=== PATIENT | female | born 1950 | race Two or more races ===

== ENCOUNTER 2019-03-29 17:29 | Emergency (ER) | payer OTHER ==
[~2019-03-29] VITALS: Ht 154.9 cm; Wt 70.3 kg
[2019-03-29 17:39] VITALS: BP 137/74
== END 2019-03-29 20:59 | disposition home or self-care (01) ==
LOC: ER 17:29
DX: J44.1 Chronic obstructive pulmonary disease with (acute) exacerbation (principal); J20.9 Acute bronchitis, unspecified; I10 Essential (primary) hypertension; E11.9 Type 2 diabetes mellitus without complications
CPT/HCPCS: 71046; 93005

== ENCOUNTER 2020-08-01 14:38 | Emergency (ER) | payer BC, MEDICAID ==
[2020-08-01] MEDS ORDERED: ACETAMINOPHEN 325 MG TAB PO ONE (15:30)
[2020-08-01 16:45] VITALS: BP 142/71
== END 2020-08-01 17:46 | disposition home or self-care (01) ==
LOC: ER 14:38
DX: J02.9 Acute pharyngitis, unspecified (principal); Z20.822 Contact with and (suspected) exposure to COVID-19
CPT/HCPCS: 36415; 71045; 87426; 87804; 99284; C9803; U0003

== ENCOUNTER 2020-09-03 14:50 | Emergency (ER) | payer MEDICARE, MEDICAID ==
[~2020-09-03] VITALS: Ht 157.5 cm; Wt 66.7 kg
[2020-09-03 15:33] VITALS: BP 123/66
== END 2020-09-03 16:38 | disposition home or self-care (01) ==
LOC: ER 14:50
DX: S92.514A Nondisplaced fracture of proximal phalanx of right lesser toe(s), initial encounter for closed fracture (principal); E11.9 Type 2 diabetes mellitus without complications; I10 Essential (primary) hypertension; W22.8XXA Striking against or struck by other objects, initial encounter; Y93.89 Activity, other specified; Y92.89 Other specified places as the place of occurrence of the external cause; Y99.8 Other external cause status
CPT/HCPCS: 73630

== ENCOUNTER 2021-04-05 10:39 | Emergency (ER) | payer OTHER, MEDICAID ==
[~2021-04-05] VITALS: Ht 154.9 cm; Wt 68.0 kg
[2021-04-05 10:53] VITALS: BP 150/77
[2021-04-05] MEDS ORDERED: SODIUM CHLORIDE 0.9% 1,000 ML IV ONE (11:30)
[2021-04-05] MEDS ORDERED: KETOROLAC TROMETH 30 MG/ML 1ML VIAL IV ONE (11:30)
[2021-04-05 12:17] LABS: Basophils # (auto) 0 10 ^3/uL (0-0.2); Basophils % (auto) 0.7 % (0.0-2.0); Eosinophils # (auto) 0 10 ^3/uL (0-0.8); Eosinophils % (auto) 0.7 % (0.0-7.0); Hematocrit 39.2 % (36.0-46.0); Lymphocytes # (auto) 1.8 10 ^3/uL (0.4-5.4); Lymphocytes % (auto) 27.5 % (10.0-50.0); Mean Corpuscular Hgb Conc. 33.2 g/dL (32.0-36.0); Mean Corpuscular Volume 90.4 fL (80.0-100.0); Monocytes # (auto) 0.3 10 ^3/uL (0-1.3); Monocytes % (auto) 4.9 % (0.0-12.0); Neutrophils # (auto) 4.3 10 ^3/uL (1.6-8.6); Neutrophils % (auto) 66.2 % (37.0-80.0); Red Blood Cells 4.33 10^6/uL (4.0-5.20); Red Cell Distribution Width 13.3 % (11.8-14.3); White Blood Cell 6.5 10^3/uL (4.4-10.8)
[2021-04-05 12:38] LABS: Potassium 3.9 mmol/L (3.5-5.1)
[2021-04-05 12:46] LABS: Albumin 3.9 g/dL (3.4-5.0); BUN/Creatinine Ratio 17.6; Bilirubin, Total 0.2 mg/dL (0.2-1.0); Magnesium 2.2 mg/dL (1.6-2.6); Total Protein 8.6 g/dL (6.4-8.2)
== END 2021-04-05 17:25 | disposition home or self-care (01) ==
LOC: ER 10:39
DX: M54.59 Other low back pain (principal); M41.26 Other idiopathic scoliosis, lumbar region; E11.65 Type 2 diabetes mellitus with hyperglycemia; R51.9 Headache, unspecified; M54.2 Cervicalgia; M85.80 Other specified disorders of bone density and structure, unspecified site; M62.838 Other muscle spasm; E11.9 Type 2 diabetes mellitus without complications; I10 Essential (primary) hypertension; Z90.49 Acquired absence of other specified parts of digestive tract; W10.9XXA Fall (on) (from) unspecified stairs and steps, initial encounter; Y93.89 Activity, other specified; Y92.89 Other specified places as the place of occurrence of the external cause; Y99.8 Other external cause status
CPT/HCPCS: 36415; 71046; 72040; 72100; 80053; 83735; 85025

== ENCOUNTER 2021-07-13 22:55 | Emergency (ER) | payer OTHER, MEDICAID ==
[~2021-07-13] VITALS: Ht 154.9 cm; Wt 65.3 kg
[2021-07-13] MEDS ORDERED: DEXTROSE (50%) 50ML SYRG IV ONE ×2 (23:15→23:30)
[2021-07-13] MEDS ORDERED: ACCU-CHEK COMFORT CURVE STRIP VI ONE ×2 (23:15→23:30)
[2021-07-13 23:52] LABS: Basophils # (auto) 0.1 10 ^3/uL (0-0.2); Basophils % (auto) 0.7 % (0.0-2.0); Eosinophils # (auto) 0.1 10 ^3/uL (0-0.8); Eosinophils % (auto) 0.7 % (0.0-7.0); Hematocrit 37.4 % (36.0-46.0); Hemoglobin 12.6 g/dL (12.2-16.2); Lymphocytes # (auto) 2.9 10 ^3/uL (0.4-5.4); Lymphocytes % (auto) 31.9 % (10.0-50.0); Mean Corpuscular Hemoglobin 30.7 pg (28.0-32.0); Mean Corpuscular Hgb Conc. 33.8 g/dL (32.0-36.0); Mean Corpuscular Volume 90.8 fL (80.0-100.0); Monocytes # (auto) 0.5 10 ^3/uL (0-1.3); Monocytes % (auto) 5.3 % (0.0-12.0); Neutrophils # (auto) 5.6 10 ^3/uL (1.6-8.6); Neutrophils % (auto) 61.4 % (37.0-80.0); Nucleated Red Blood Cells % 0.2 %; Red Blood Cells 4.11 10^6/uL (4.0-5.20); Red Cell Distribution Width 13.1 % (11.8-14.3)
[2021-07-14 00:11] LABS: Albumin 3.9 g/dL (3.4-5.0); BUN/Creatinine Ratio 16.7; Calcium 9.1 mg/dL (8.5-10.1); Potassium 3.6 mmol/L (3.5-5.1)
[2021-07-14 00:14] LABS: Bilirubin, Total 0.3 mg/dL (0.2-1.0); Total Protein 8.1 g/dL (6.4-8.2)
[2021-07-14 02:00] LABS: Urine Bacteria NONE SEEN /hpf (None Seen); Urine Blood Negative /uL (Negative); Urine Mucus FEW (None Seen); Urine Specific Gravity 1.021 (1.001-1.035); Urine WBC <1 /hpf (0 - 5)
[2021-07-14 02:55] VITALS: BP 148/89
== END 2021-07-14 03:03 | disposition home or self-care (01) ==
LOC: ER 22:55
DX: E11.649 Type 2 diabetes mellitus with hypoglycemia without coma (principal); I10 Essential (primary) hypertension; Z90.49 Acquired absence of other specified parts of digestive tract
CPT/HCPCS: 36415; 80053; 81001; 85025

== ENCOUNTER 2022-09-15 16:34 | Emergency (ER) | payer OTHER ==
[~2022-09-15] VITALS: Ht 154.9 cm; Wt 63.5 kg
[2022-09-15 17:23] LABS: Basophils # (auto) 0 10 ^3/uL (0-0.2); Basophils % (auto) 0.4 % (0.0-2.0); Eosinophils # (auto) 0 10 ^3/uL (0-0.8); Eosinophils % (auto) 0.4 % (0.0-7.0); Hematocrit 38.4 % (36.0-46.0); Hemoglobin 12.7 g/dL (12.2-16.2); Lymphocytes # (auto) 2.1 10 ^3/uL (0.4-5.4); Lymphocytes % (auto) 21.3 % (10.0-50.0); Mean Corpuscular Hemoglobin 29.9 pg (28.0-32.0); Mean Corpuscular Volume 90.5 fL (80.0-100.0); Monocytes # (auto) 0.6 10 ^3/uL (0-1.3); Neutrophils # (auto) 7.3 10 ^3/uL (1.6-8.6); Neutrophils % (auto) 71.9 % (37.0-80.0); Red Blood Cells 4.24 10^6/uL (4.0-5.20); Red Cell Distribution Width 13.6 % (11.8-14.3); White Blood Cell 10.1 10^3/uL (4.4-10.8)
[2022-09-15 17:48] LABS: Calcium 9.3 mg/dL (8.5-10.1); Potassium 3.6 mmol/L (3.5-5.1)
[2022-09-15 17:50] LABS: BUN/Creatinine Ratio 19.3
[2022-09-15 17:53] LABS: Bilirubin, Total 0.3 mg/dL (0.2-1.0); Total Protein 8.6 g/dL (6.4-8.2)
[2022-09-15] MEDS ORDERED: ACETAMINOPHEN 500 MG TAB PO ONE (19:00)
[2022-09-15] MEDS ORDERED: MAALOX PLUS or MAALOX 30 ML PO ONE (19:00)
[2022-09-15 19:35] LABS: Urine WBC None Seen /hpf (0 - 5)
[2022-09-15 19:55] LABS: Urine Bacteria NONE SEEN /hpf (None Seen); Urine Blood Negative /uL (Negative); Urine Specific Gravity 1.006 (1.001-1.035)
[2022-09-15] MEDS ORDERED: CALC100023 PO (21:25)
[2022-09-15] MEDS ORDERED: ONDA-144 PO (21:25)
[2022-09-15 21:59] VITALS: BP 131/69
== END 2022-09-15 22:04 | disposition home or self-care (01) ==
LOC: ER 16:34
DX: A05.9 Bacterial foodborne intoxication, unspecified (principal); E11.9 Type 2 diabetes mellitus without complications; I10 Essential (primary) hypertension; Z90.49 Acquired absence of other specified parts of digestive tract
CPT/HCPCS: 36415; 80053; 81001; 85025; 93005

== ENCOUNTER 2024-01-14 08:26 | Emergency (ER) | payer OTHER ==
[~2024-01-14] VITALS: Ht 152.4 cm; Wt 62.9 kg
[~2024-01-14 08:26] MED LIST: AZIT1POW PO; CALC100023 PO; METH4PAK PO; ONDA-144 PO
[2024-01-14 09:28] VITALS: BP 142/79; PULSE 88; RESP 18; TEMP 98.7; O2SAT 98
[2024-01-14 10:21] LABS: Rapid Strep A Screen-Throat Negative
[2024-01-14] MEDS ORDERED: AUG875T PO (10:31)
[2024-01-14] MEDS ORDERED: ACET500T58 PO (10:31)
[2024-01-14] MEDS ORDERED: BENZ100C97 PO (10:31)
== END 2024-01-14 10:39 | disposition home or self-care (01) ==
LOC: ER 08:26
DX: B34.9 Viral infection, unspecified (principal); E11.9 Type 2 diabetes mellitus without complications; I10 Essential (primary) hypertension; Z90.49 Acquired absence of other specified parts of digestive tract
CPT/HCPCS: 87070; 87880

== ENCOUNTER 2024-03-08 14:50 | Emergency (ER) | payer OTHER ==
[~2024-03-08] VITALS: Ht 152.4 cm; Wt 63.4 kg
[~2024-03-08 14:50] MED LIST changes: +ACET500T58 PO; +AUG875T PO; +BENZ100C97 PO
[2024-03-08 15:17] VITALS: BP 151/76; PULSE 93; RESP 18; TEMP 98; O2SAT 98
[2024-03-08] MEDS ORDERED: LIDO2SOL26 MT (15:47)
[2024-03-08] MEDS ORDERED: PRED20TA2 PO (15:47)
[2024-03-08] MEDS ORDERED: IBUP-1454 PO (15:47)
== END 2024-03-08 16:16 | disposition home or self-care (01) ==
LOC: ER 14:50
DX: J02.9 Acute pharyngitis, unspecified (principal); I10 Essential (primary) hypertension; E11.9 Type 2 diabetes mellitus without complications; Z98.890 Other specified postprocedural states

== ENCOUNTER 2024-08-02 11:52 | Emergency (ER) | payer OTHER ==
[~2024-08-02] VITALS: Ht 154.9 cm; Wt 63.5 kg
[~2024-08-02 11:52] MED LIST changes: +IBUP-1454 PO; +LIDO2SOL26 MT; +PRED20TA2 PO
--- NOTE | 2024-08-02 13:03 | ED.PDOC ---
History of Present Illness HPI Comments This is a 74-year-old female that comes in with left lower quadrant pain for approximately 10 days. She states it is in the left lower quadrant sometimes goes to the back. She does have problems with constipation on and off. She denies any fever or chills no burning no blood in her urine no history of stone s.. Chief Complaint: Pelvic Pain Time Seen by MD: 13:00 Primary Care Provider: BHAVNA Reviewed Notes: Nurses Notes, Medications Allergies: Coded Allergies: NO KNOWN ALLERGIES (Unverified , 03/29/19) Home Meds Active Scripts Ibuprofen (Ibuprofen) 600 Mg Tab, 1 TAB PO TID for 7 Days, #21 TAB 0 Refills Prov:AMINA HERNANDEZ NP 03/08/24 Prednisone (Prednisone) 20 Mg Tab, 40 MG PO DAILY for 5 Days, #10 TAB 0 Refills Prov:AMINA HERNANDEZ NP 03/08/24 Lidocaine HCl (Mouth-Throat) (Lidocaine HCl Viscous) 2 % Christie, 15 ML MT TID for 2 Days, #200 ML 0 Refills Prov:AMINA HERNANDEZ NP 03/08/24 Amoxicillin & Pot Clavulanate (AUGMENTIN TABLET) 875 Mg Tb, 875 MG PO BID for 5 Days, #10 TAB 0 Refills Prov:AMINA HERNANDEZ NP 03/08/24 Benzonatate (Benzonatate) 100 Mg Cap, 1 CAP PO TID for 10 Days, #30 CAP 0 Refills Prov:AMINA HERNANDEZ NP 01/14/24 Acetaminophen (Acetaminophen) 500 Mg Tab, 500 MG PO QIDP for 10 Days, #40 TAB 0 Refills Prov:AMINA HERNANDEZ NP 01/14/24 Amoxicillin & Pot Clavulanate (AUGMENTIN TABLET) 875 Mg Tb, 875 MG PO BID for 5 Days, #10 TAB 0 Refills Prov:AMINA HERNANDEZ NP 01/14/24 Azithromycin (Zithromax) 1 Gm Pow, 1 PACK PO ONCE, #1 PACK Prov:PAUL GUERRERO MD 09/29/23 Methylprednisolone (Medrol Dosepak) 4 Mg Ramy, 4 MG PO UD, #21 TAB UAD Prov:PAUL GUERRERO MD 09/29/23 Calcium Carbonate-Simethicone (Maalox Advanced Maximum S) 1 Chw Chw, 1 CHW PO BID, #20 TAB.CHEW Prov:DANYELLE BRISENO PAC 09/15/22 Ondansetron (Zofran) 4 Mg Tab, 1 TAB PO Q6HR, #20 TAB Prov:DANYELLE BRISENO PAC 09/15/22 Information Source: Patient Mode of Arrival: Ambulatory Past Medical History PAST MEDICAL HISTORY: DM, HTN Surgical History: Cholecystectomy 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 Pertinent EXPERIMENTAL WELDER History Family History Family History: Reviewed,noncontributory to illness, No family hx of Cancer, No family hx of DM, No family hx of Heart haylee, No family hx of HTN, No family hx ofKidney haylee, No family hx of Liver haylee, No family hx of Lung haylee, No family hx of Stroke Social History Smoker: Non-Smoker Alcohol: Denies ETOH Use Drugs: Denies Drug Use Lives In: Home Gastrointestinal: reports: abdominal pain, diarrhea All Other Systems: Reviewed and Negative Physical Exam General Appearance: No Apparent Distress, None HEENT: Normal ENT Inspection, PERRL/EOMI, Pharynx Normal, TMs Normal Neck: Full Range of Motion, Non-Tender, Normal Inspection Respiratory: Lungs Clear, No Respiratory Distress Cardiovascular: Regular Rate/Rhythm Breast Exam: Deferred Gastrointestinal: Abnormal Bowel Sounds, LLQ, Other (Left flank) Genitalia: Deferred Pelvic: Deferred Rectal: Deferred Extremities: Normal inspection, Normal range of motion, Non-tender Neurologic: Alert, Normal Affect, Normal Mood Cerebellar Function: NOT DONE Reflexes: Normal Skin: Dry, Warm Lymphatic: No Adenopathy Was a procedure done? Was a procedure done?: No Differential Dx Considerations may include: Ovarian cyst versus kidney stone. X-Ray, Labs, Meds, VS Vital Signs Date Time Temp Pulse Resp B/P (MAP) Pulse Ox O2 Delivery O2 Flow Rate FiO2 08/02/24 14:07 84 16 96 Room Air 08/02/24 14:07 98.0 84 16 128/72 (90) 96 98.0 08/02/24 12:12 98.3 85 16 126/74 (91) 96 Lab Test 08/02/24 12:08 Range/Units Urine Color Yellow Yellow Urine Clarity Clear Clear Urine pH 5.5 5.0-9.0 Urine Specific [place] 1.029 1.001-1.035 Urine Protein Trace H Negative Urine Ketones Trace Negative Urine Blood 1+ H Negative /uL Urine Nitrite Negative Negative Urine Bilirubin Negative Negative Urine Urobilinogen Normal Negative mg/dL Urine Leukocyte Esterase Negative Negative /uL Urine RBC 2 0 - 4 /hpf Urine Microscopic WBC 1 0-5 /HPF Urine Squamous Epithelial Cells Few <5 /hpf Urine Bacteria None seen None Seen /hpf Urine Mucus Few None Seen Urine Glucose Normal Normal mg/dL X-Ray, Labs, Meds, VS Comment Patient seen and examined by me. Patient does have left lower quadrant pain for the last 10 days we will order a urinalysis as well as a CT scan noncontrast to rule out a kidney stone as the pain does travel to her left flank. If it does show a stone we can give her some pain medicine at a later time.. Patient states that she was told already after she had her endoscopy that she should not be eating any seeds and apparently 2-1/2 weeks ago she age 8 some cheese seeds. Which she thinks is what is causing the discomfort. I told her that since she is having continuous pain now for a while I will put her on some antibiotics I stressed with her the importance of not eating anything would seize and following the appropriate diet.. ORDERING PHYSICIAN: DIPESH JEAN INVENTORY CONTROL COORDINATOR PROCEDURE(s): ABPL - CT AB PEL WO CON-NO ORAL OR IV REASON: LLQpain ORDER NUMBER(s): [id number], ACCESSION NUMBER(s): [id number] Exam: CT CT AB PEL WO CON-NO ORAL OR IV History: LLQpain Comparison Study: None available TECHNIQUE: Multidetector CT of the abdomen and pelvis was performed from lung bases to pubic symphysis. Imaging was performed without IV contrast. Axial, coronal, and sagittal multiplanar reformats were obtained from the axial data set by the technologist. RADIATION DOSE: DLP 340.93 mGy.cm; CTDI vol 6.65 mGy. Findings: Lungs: The lung bases are clear. Heart: No cardiomegaly or pericardial effusion. Liver: Unremarkable. Gallbladder: Cholecystectomy. Minimal pneumobilia. Spleen: Unremarkable Pancreas: Unremarkable Adrenals: Unremarkable Kidneys: Unremarkable GI tract: Diverticulosis without evidence of acute diverticulitis. Normal appendix. : Unremarkable. Vasculature: Unremarkable Lymphadenopathy: Absent Peritoneum: No ascites Musculoskeletal: Moderate multilevel degenerative changes of the thoracolumbar spine Soft tissues: Unremarkable Impression: 1. No acute abdominopelvic abnormalities. 2. Diverticulosis without evidence of acute diverticulitis. Time of 1ST Reevaluation: 14:39 Reevaluation 1ST: Improved Patient Education/Counseling: Diagnosis, Treatment, Prognosis, Need For Follow Up Family Education/Counseling: No Family Present Departure 1 Departure Time of Disposition: 14:44 Impression: Primary Impression: Diverticulitis Disposition: 01 HOME / SELF CARE / HOMELESS Condition: Good Additional Instructions: You have diverticulitis on your CT scan most likely from eating the steph seeds Please remember that you need to be on a bland diet and he can not any eat any seeds or peanuts which will cause worsening pain Please take all the antibiotics as directed Make sure you keep yourself from getting constipated Drink a lot of fluids keep your stool soft e-Prescriptions Amoxicillin & Pot Clavulanate (AUGMENTIN TABLET) 875 Mg Tb 875 MG PO BID for 7 Days, #14 TAB Prov: DIPESH JEAN 08/02/24 Discharged With: Self Critical Care Note Critical Care Time?: No Stability Stability form required: No Heart Score Heart Score: Heart Score Response (Comments) Value History N/A 0 EKG N/A 0 Age N/A 0 Risk Factors N/A 0 Troponin N/A 0 Total 0 DIPESH JEAN INVENTORY CONTROL COORDINATOR Aug 02, 2024 13:03
--- NOTE | 2024-08-02 13:38 | DVH ---
Exam: CT CT AB PEL WO CON-NO ORAL OR IV History: LLQpain Comparison Study: None available TECHNIQUE: Multidetector CT of the abdomen and pelvis was performed from lung bases to pubic symphysi s. Imaging was performed without IV contrast. Axial, coronal, and sagittal multiplanar reformats were obtained from the axial data set by the technologist. RADIATION DOSE: DLP 340.93 mGy.cm; CTDI vol 6.65 mGy. Findings: Lungs: The lung bases are clear. Heart: No cardiomegaly or pericardial effusion. Liver: Unremarkable. Gallbladder: Cholecystectomy. Minimal pneumobilia. Spleen: Unremarkable Pancreas: Unremarkable Adrenals: Unremarkable Kidneys: Unremarkable GI tract: Diverticulosis without evidence of acute diverticulitis. Normal appendix. : Unremarkable. Vasculature: Unremarkable Lymphadenopathy: Absent Peritoneum: No ascites Musculoskeletal: Moderate multilevel degenerative changes of the thoracolumbar spine Soft tissues: Unremarkable Impression: 1. No acute abdominopelvic abnormalities. 2. Diverticulosis without evidence of acute diverticulitis.
[2024-08-02 13:57] LABS: Urine Bacteria None Seen /hpf (None Seen)
[2024-08-02 14:07] VITALS: BP 128/72; PULSE 84; RESP 16; TEMP 98; O2SAT 96
[2024-08-02 14:12] LABS: Urine Blood 1+ /uL (Negative); Urine Clarity Clear (Clear); Urine Color Yellow (Yellow); Urine Mucus FEW (None Seen); Urine Protein, UAD TRACE (Negative); Urine Specific Gravity 1.029 (1.001-1.035); Urine Squamous Epithelial Cell FEW /hpf (<5); Urine Urobilinogen Normal (Negative); Urine WBC 1 /HPF (0-5); Urine pH 5.5 (5.0-9.0)
[2024-08-02] MEDS ORDERED: AUG875T PO (14:47)
== END 2024-08-02 14:56 | disposition home or self-care (01) ==
LOC: ER 12:01
DX: K57.92 Diverticulitis of intestine, part unspecified, without perforation or abscess without bleeding (principal); E11.9 Type 2 diabetes mellitus without complications; I10 Essential (primary) hypertension; Z90.49 Acquired absence of other specified parts of digestive tract
CPT/HCPCS: 74176; 81001

== ENCOUNTER 2024-11-07 16:20 | Inpatient (IN) | payer OTHER ==
[2024-11-06 21:34] VITALS: BP 146/75; PULSE 85; RESP 16; TEMP 97.9; O2SAT 92
[~2024-11-07] VITALS: Ht 170.2 cm; Wt 63.7 kg
--- NOTE | 2024-11-07 16:31 | ECG ---
[facility] Test Date: 2024-11-07 Test Time: 16:27:31 Pat Name: MATTHEW POLLOCK Department: ER Room: Gender: F Mapping Specialist: KASEY : 1950 Requested By: OZZIE LOPEZ Order Number: [id number] Reading MD: Measurements Intervals [place] Rate: 94 P: 44 CO: 178 QRS: -20 QRSD: 84 T: 25 QT: 356 QTc: 446 Interpretive Statements Sinus rhythm Inferior infarct, old Consider anterior infarct Baseline wander in lead(s) II,III,aVR,aVL,aVF,V5,V6 Please click the below link to view image of tracing.
--- NOTE | 2024-11-07 16:32 | ED.PDOC ---
History of Present Illness HPI Comments 74-year-old female came to the ER complaining of abdominal pain abdominal pain started three days ago associated with nausea. Abdominal pain is 9/10 with radiation from epigastric region to the suprapubic region. No radiation to the back. States that she does have history of diabetes for which she takes met formin insulin. She did have a gallbladder surgery many years ago. Denies any other symptoms. Time Seen by MD: 16:22 Primary Care Provider: BHAVNA Reviewed Notes: Nurses Notes, Medications, Allergies Allergies: Coded Allergies: NO KNOWN ALLERGIES (Unverified , 03/29/19) Home Meds Active Scripts Amoxicillin & Pot Clavulanate (AUGMENTIN TABLET) 875 Mg Tb, 875 MG PO BID for 7 Days, #14 TAB Prov:DIPESH JEAN 08/02/24 Ibuprofen (Ibuprofen) 600 Mg Tab, 1 TAB PO TID for 7 Days, #21 TAB 0 Refills Prov:AMINA HERNANDEZ NP 03/08/24 Prednisone (Prednisone) 20 Mg Tab, 40 MG PO DAILY for 5 Days, #10 TAB 0 Refills Prov:AMINA HERNANDEZ NP 03/08/24 Lidocaine HCl (Mouth-Throat) (Lidocaine HCl Viscous) 2 % Christie, 15 ML MT TID for 2 Days, #200 ML 0 Refills Prov:AMINA HERNANDEZ NP 03/08/24 Amoxicillin & Pot Clavulanate (AUGMENTIN TABLET) 875 Mg Tb, 875 MG PO BID for 5 Days, #10 TAB 0 Refills Prov:AMINA HERNANDEZ NP 03/08/24 Benzonatate (Benzonatate) 100 Mg Cap, 1 CAP PO TID for 10 Days, #30 CAP 0 Refills Prov:AMINA HERNANDEZ NP 01/14/24 Acetaminophen (Acetaminophen) 500 Mg Tab, 500 MG PO QIDP for 10 Days, #40 TAB 0 Refills Prov:AMINA HERNANDEZ NP 01/14/24 Amoxicillin & Pot Clavulanate (AUGMENTIN TABLET) 875 Mg Tb, 875 MG PO BID for 5 Days, #10 TAB 0 Refills Prov:AMINA HERNANDEZ NP 01/14/24 Azithromycin (Zithromax) 1 Gm Pow, 1 PACK PO ONCE, #1 PACK Prov:PAUL GUERRERO MD 09/29/23 Methylprednisolone (Medrol Dosepak) 4 Mg Ramy, 4 MG PO UD, #21 TAB UAD Prov:PAUL GUERRERO MD 09/29/23 Calcium Carbonate-Simethicone (Maalox Advanced Maximum S) 1 Chw Chw, 1 CHW PO BID, #20 TAB.CHEW Prov:DANYELLE BRISENO PAC 09/15/22 Ondansetron (Zofran) 4 Mg Tab, 1 TAB PO Q6HR, #20 TAB Prov:DANYELLE BRISENO PAC 09/15/22 Information Source: Patient Mode of Arrival: Ambulatory Severity: Moderate Timing: Days Duration: Since onset Past Medical History PAST MEDICAL HISTORY: DM, HTN Surgical History: Cholecystectomy 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: No Pertinent 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 Family History Family History: Reviewed,noncontributory to illness, No family hx of Cancer, No family hx of DM, No family hx of Heart haylee, No family hx of HTN, No family hx ofKidney haylee, No family hx of Liver haylee, No family hx of Lung haylee, No family hx of Stroke Social History Smoker: Non-Smoker Alcohol: Denies ETOH Use Drugs: Denies Drug Use Lives In: Home Constitutional: denies: chills, diaphoresis, fatigue, fever, malaise, sweats, weakness, others EENTM: denies: blurred vision, double vision, ear bleeding, ear discharge, ear drainage, ear pain, ear ringing, eye pain, eye redness, hearing loss, mouth pain, mouth swelling, nasal discharge, nose bleeding, nose congestion, nose pain, photophobia, tearing, throat pain, throat swelling, voice changes, others Respiratory: denies: cough, hemoptysis, orthopnea, SOB at rest, shortness of breath, SOB with excertion, stridor, wheezing, others Cardiovascular: denies: chest pain, dizzy spells, diaphoresis, Dyspnea on exertion, edema, irregular heart beat, left arm pain, lightheadedness, palpitations, PND, syncope, others Gastrointestinal: reports: abdominal pain, nausea Genitourinary: denies: abnormal vagina bleeding, burning, dyspareunia, dysuria, flank pain, frequency, hematuria, incontinence, pain, , vagina discharge, urgency, others Neurological: denies: dizziness, fainting, headache, left sided numbness, left sided weakness, numbness, paresthesia, pre-existing deficit, right sided numbness, right sided weakness, seizure, speech problems, tingling, tremors, weakness, others Musculoskeletal: denies: back pain, gout, joint pain, joint swelling, muscle pain, muscle stiffness, neck pain, others Integumetry: denies: bruises, change in color, change in hair/nails, dryness, laceration, lesions, lumps, rash, wounds, others Allergic/Immunocompromised: denies: Difficulty Healing, Frequent Infections, Hives, Itching, others Hematologic/Lymphatic: denies: anemia, blood clots, easy bleeding, easy bruising, swollen glands, others Endocrine: denies: excessive hunger, excessive sweating, excessive thirst, excessive urination, flushing, intolerance to cold, intolerance to heat, unexplained weight gain, unexplained weight loss, others Psychiatric: denies: anxiety, bipolar disorder, depression, hopeless, panic disorder, schizophrenia, sleepless, suicidal, others Physical Exam General Appearance: Moderate Distress HEENT: Normal ENT Inspection, Pharynx Normal, TMs Normal Neck: Full Range of Motion, Non-Tender, Normal, Normal Inspection Respiratory: Chest Non-Tender, Lungs Clear, No Accessory Muscle Use, No Respiratory Distress, Normal Breath Sounds Cardiovascular: No Edema, No JVD, No Murmur, No Gallop, Normal Peripheral Pulses, Regular Rate/Rhythm Breast Exam: Deferred Gastrointestinal: No Organomegaly, Non Tender, No Pulsatile Mass, Normal Bowel Sounds, Soft Genitalia: Deferred Pelvic: Deferred Rectal: Deferred Extremities: No calf tenderness, Normal capillary refill, Normal inspection, Normal range of motion, Non-tender, No pedal edema Musculoskeletal : Apperance: Normal Neurologic: Alert, animal shelter worker II-XII nml as Tested, No Motor Deficits, Normal Affect, Normal Mood, No Sensory Deficits Cerebellar Function: NOT DONE Reflexes: NOT DONE Skin: Dry, Normal Color, Warm Peripheral Pulses: 3+ Radial (R), 3+ Radial (L) Lymphatic: No Adenopathy Was a procedure done? Was a procedure done?: No EKG EKG : Pulse Rate (adult): 94 Cardiac Rhythm: NSR Differential Dx Considerations may include: Colitis Electrolyte imbalance X-Ray, Labs, Meds, VS Patient alert. Complaining of abdominal pain. Vitals stable. Answering all questions. Possible colitis. Establish intravenous access. Was given fluids. Was given morphine. Was given Zofran. Possible endoscope. EKG reviewed does not show any acute changes. Reviewed her history. Explained to the patient. Continue monitoring. Time of 1ST Reevaluation: 16:29 Reevaluation 1ST: Unchanged Patient Education/Counseling: Diagnosis, Treatment, Prognosis Family Education/Counseling: No Family Present Departure 1 Departure Time of Disposition: 16:31 Impression: Primary Impression: Acute abdominal pain Additional Impression: Uncontrolled diabetes mellitus Qualified Codes: E13.65 - Other specified diabetes mellitus with hyperglycemia Disposition: ADMITTED INPATIENT Admit to: Med Surg Condition: Guarded Critical Care Note Critical Care Time?: No Stability Stability form required: No Heart Score Heart Score: Heart Score Response (Comments) Value History Slightly Suspicious 0 EKG Normal 0 Age >65 2 Risk Factors >3 or Hx ASHD 2 Troponin Normal limit 0 Total 4 OZZIE LOPEZ MD November 07, 2024 16:31
[2024-11-07 16:44] LABS: Urine Bacteria None Seen /hpf (None Seen)
[2024-11-07 16:49] LABS: Urine Blood 1+ /uL (Negative); Urine Clarity Clear (Clear); Urine Color Yellow (Yellow); Urine Mucus FEW (None Seen); Urine Protein, UAD Negative (Negative); Urine Specific Gravity 1.028 (1.001-1.035); Urine Squamous Epithelial Cell FEW /hpf (<5); Urine Urobilinogen Normal (Negative); Urine WBC 1 /HPF (0-5); Urine pH 5.5 (5.0-9.0)
[2024-11-07 16:56] LABS: Basophils # (auto) 0 10 ^3/uL (0-0.2); Basophils % (auto) 0.6 % (0.0-2.0); Eosinophils # (auto) 0.1 10 ^3/uL (0-0.8); Eosinophils % (auto) 0.8 % (0.0-7.0); Hemoglobin 13.4 g/dL (12.2-16.2); Lymphocytes # (auto) 2.4 10 ^3/uL (0.4-5.4); Lymphocytes % (auto) 29.3 % (10.0-50.0); Mean Corpuscular Hemoglobin 30.5 pg (28.0-32.0); Mean Corpuscular Hgb Conc. 33.6 g/dL (32.0-36.0); Mean Corpuscular Volume 90.8 fL (80.0-100.0); Monocytes # (auto) 0.4 10 ^3/uL (0-1.3); Monocytes % (auto) 5.2 % (0.0-12.0); Neutrophils # (auto) 5.3 10 ^3/uL (1.6-8.6); Neutrophils % (auto) 64.1 % (37.0-80.0); Nucleated Red Blood Cells % 0.1 %; Platelet Count (auto) 254 10^3/uL (140-450); Red Blood Cells 4.41 10^6/uL (4.0-5.20); Red Cell Distribution Width 13.2 % (11.8-14.3); White Blood Cell 8.3 10^3/uL (4.4-10.8)
[2024-11-07 17:05] LABS: Chloride 106 mmol/L (98-107); Potassium 3.6 mmol/L (3.5-5.1); Sodium 143 mmol/L (136-145)
[2024-11-07 17:06] LABS: Anion Gap 10 (5-15); Calcium 9.6 mg/dL (8.7-10.4); Carbon Dioxide 27 mmol/L (20-31)
[2024-11-07 17:11] LABS: Blood Urea Nitrogen 14 mg/dL (9-23); Lipase 38 U/L (12-53)
[2024-11-07 17:19] LABS: Glucose 132 mg/dL (74-106)
[2024-11-07] MEDS: SODIUM CHLORIDE 0.9% 1,000 ML IV ONE (17:31)
[2024-11-07] MEDS: ONDANSETRON HCL 4 MG/2 ML VIAL IV ONE (17:35)
[2024-11-07] MEDS: MORPHINE SULFATE 4 MG/ML SYR/VIAL IV ONE (17:35)
[2024-11-07 17:43] VITALS: PULSE 75; RESP 19; O2SAT 97
[2024-11-07] MEDS: PANTOPRAZOLE 40 MG/10 ML VIAL INJ IV ONE (18:25)
[2024-11-07] MEDS: PIPERACILLIN-TAZOB 3.375GM 100 ML IV ONE (18:26)
--- NOTE | 2024-11-07 18:38 | DVH ---
Exam: CT CT AB PEL WO CON-NO ORAL OR IV History: diffusepain Comparison Study: CT CT AB PEL WO CON-NO ORAL OR IV on DOS: 08/02/24 TECHNIQUE: Multidetector CT of the abdomen was performed from lung bases to pubic symphysis. Imaging was performed without IV contrast. Axial, coronal and sagittal multiplanar reformats were obtained fr om the axial data set by the technologist. Radiation Dose Information: CT Dose: CTDI volume is 11.84 mGy. Dose-length product is 590.55 mGy*cm FINDINGS: Evaluation of solid organs is limited due to lack of intravenous contrast use. Findings: Lung Bases: No acute or significant lung base finding. Normal heart size. No pleural or pericardial effusion. Liver: The liver is normal in size. No focal lesions. Gallbladder and Biliary Tree: Has been surgically removed. Spleen: Unremarkable Pancreas: The pancreas is grossly normal in appearance. Adrenal Glands: Unremarkable Kidneys: Kidneys are grossly normal without calculi or hydronephrosis. Bladder: Grossly unremarkable for degree of distention. Bowel: The stomach is grossly normal in appearance. Small bowel and colon are normal in caliber and d istribution. The appendix is not visualized; however, no secondary findings of acute appendicitis id entified. Ascites: Absent Lymphadenopathy: No mesenteric, retroperitoneal or periportal lymphadenopathy. Abdominal Wall and Mesentery: Unremarkable. Vasculature: The visualized abdominal aorta is normal in size and caliber. Evaluation of abdominal a nd pelvic vessels is limited due to lack of intravenous contrast. Pelvic Organs: Unremarkable Musculoskeletal: No aggressive focal bony lesions, acute fractures or dislocation. Soft tissues: Unremarkable IMPRESSION: 1. No findings of bowel obstruction. Large stool burden in the right and transverse colons. 2. No pneumoperitoneum or ascites. 3. Gallbladder has been surgically removed. 4. No nephrolithiasis or hydronephrosis. Radiation optimization: All CT scans at this facility use at least one of these dose optimization te chniques: automated exposure control mA and/or kV adjustment per patient size (includes targeted exa ms where dose is matched to clinical indication) or iterative reconstruction. HS:Y
[2024-11-07] MEDS ORDERED: MORPHINE SULFATE INJ 2 MG/ml SYRG IV PRN ×2 (18:45)
[2024-11-07] MEDS ORDERED: NITROGLYCERIN 0.4 MG SL TAB SL PRN (18:45)
[2024-11-07] MEDS ORDERED: HYDROcodone-ACET 5/325MG TAB PO PRN (18:45)
--- NOTE | 2024-11-07 18:50 | DVHHP2 ---
Review of Systems Respiratory: No: Cough, Dry, Shortness of breath, SOB with excertion, Wheezing, Hemoptysis, Pleuritic Pain, Sputum, Wheezing, Other Cardiovascular: No: Chest Pain, Palpitations, Orthopnea, Paroxysmal Noc. Dyspnea, Edema, Lt Headedness, Other Gastrointestinal: No: Nausea, Vomiting, Abdominal Pain, Diarrhea, Constipation, Melena, Hematochezia, Other Allergies: Coded Allergies: NO KNOWN ALLERGIES (Unverified , 03/29/19) Medications Current Medications Medications Dose Ordered Sig/Roger Route Start Time Stop Time Status Last Admin Dose Admin Acetaminophen/ Hydrocodone Bitart 1 tab Q4HP PRN PO 11/07/24 18:45 UNV Enoxaparin Sodium 40 mg DAILY SC 11/08/24 10:00 UNV Morphine Sulfate 2 mg Q4HPRN PRN IV 11/07/24 18:45 UNV Nitroglycerin 0.4 mg Q5MINP PRN SL 11/07/24 18:45 UNV Morphine Sulfate 2 mg Q30M PRN IV 11/07/24 18:45 UNV Lactulose 30 ml DAILY PO 11/08/24 10:00 UNV Exam Vital Signs Vital Signs Date Time Temp Pulse Resp B/P (MAP) Pulse Ox O2 Delivery O2 Flow Rate FiO2 11/07/24 18:24 88 15 157/72 11/07/24 18:15 98.5 95 98.5 11/07/24 17:43 Room Air* 0 21 General Appearance: Alert, Oriented X3, Cooperative, No acute distress Respiratory: Clear to auscultation, Normal air movement Cardiovascular: Regular rate, Normal S1, Normal S2, No murmurs Abdominal: Normal bowel sounds, Soft, No tenderness Extremities: No clubbing, No cyanosis Labs/Xrays Labs Test 11/07/24 16:52 11/07/24 16:40 Range/Units White Blood Count 8.3 4.4-10.8 10^3/uL Red Blood Count 4.41 4.0-5.20 10^6/uL Hemoglobin 13.4 12.2-16.2 g/dL Hematocrit 40.0 36.0-46.0 % Mean Corpuscular Volume 90.8 80.0-100.0 fL Mean Corpuscular Hemoglobin 30.5 28.0-32.0 pg Mean Corpuscular Hemoglobin Concent 33.6 32.0-36.0 g/dL Red Cell Distribution Width 13.2 11.8-14.3 % Platelet Count 254 140-450 10^3/uL Mean Platelet Volume 7.6 6.9-10.8 fL Neutrophils (%) (Auto) 64.1 37.0-80.0 % Lymphocytes (%) (Auto) 29.3 10.0-50.0 % Monocytes (%) (Auto) 5.2 0.0-12.0 % Eosinophils (%) (Auto) 0.8 0.0-7.0 % Basophils (%) (Auto) 0.6 0.0-2.0 % Neutrophils # (Auto) 5.3 1.6-8.6 10 ^3/uL Lymphocytes # (Auto) 2.4 0.4-5.4 10 ^3/uL Monocytes # (Auto) 0.4 0-1.3 10 ^3/uL Eosinophils # (Auto) 0.1 0-0.8 10 ^3/uL Basophils # (Auto) 0 0-0.2 10 ^3/uL Nucleated Red Blood Cells 0.1 % Sodium Level 143 136-145 mmol/L Potassium Level 3.6 3.5-5.1 mmol/L Chloride Level 106 98-107 mmol/L Carbon Dioxide Level 27 20-31 mmol/L Anion Gap 10 5-15 Blood Urea Nitrogen 14 9-23 mg/dL Creatinine 0.61 0.550-1.02 mg/dL Glomerular Filtration Rate Calc 94 >90 mL/min BUN/Creatinine Ratio 23.0 H 10.0-20.0 Serum Glucose 132 H 74-106 mg/dL Calcium Level 9.6 8.7-10.4 mg/dL Troponin I High Sensitivity < 3 L </=34 ng/L Lipase 38 12-53 U/L Urine Color Yellow Yellow Urine Clarity Clear Clear Urine pH 5.5 5.0-9.0 Urine Specific [place] 1.028 1.001-1.035 Urine Protein Negative Negative Urine Ketones Trace Negative Urine Blood 1+ H Negative /uL Urine Nitrite Negative Negative Urine Bilirubin Negative Negative Urine Urobilinogen Normal Negative mg/dL Urine Leukocyte Esterase Negative Negative /uL Urine RBC 2 0 - 4 /hpf Urine Microscopic WBC 1 0-5 /HPF Urine Squamous Epithelial Cells Few <5 /hpf Urine Bacteria None seen None Seen /hpf Urine Mucus Few None Seen Urine Glucose 2+ H Normal mg/dL Assessment/Plan Assessment/Plan 1. acute abdominal pain likely related to constipation GI consult, fleet enema, supportive care 2. type 2 diabetes insulin ss Plan discussed with: Patient My Orders Orders - CLAUDIA LUIS Procedure Category Date Status Time Admit ADMIT 11/07/24 Transmitted 18:45 Allergies MELLY 11/07/24 In Process 18:45 Code Status CODE 11/07/24 Transmitted 18:45 Full Liq Diet DIET 11/08/24 Transmitted Breakfast Hydrocodone-Acet PHA 11/07/24 Logged 5/325mg Tab ([place] 18:45 Enoxaparin Sodium PHA 11/08/24 Logged (Lovenox) 10:00 Condition: Fair MELLY 11/07/24 In Process 18:45 Morphine Sulfate PHA 11/07/24 Logged Injection 18:45 Nitroglycerin PHA 11/07/24 Logged Sublingual (Ntrostat 18:45 Morphine Sulfate PHA 11/07/24 Logged Injection 18:45 Stat Ekg For Chest MELLY 11/07/24 In Process Pain 18:45 Notify Md Of Changes MELLY 11/07/24 In Process From Base 18:45 Outdoor Adventure Gu[employer] For MELLY 11/07/24 In Process 24 Hours 18:45 Emergency Dysrhythmia MELLY 11/07/24 In Process Protocol 18:45 Rhythm Strips Once MELLY 11/07/24 In Process Every Shift 18:45 Oxygen By Nasal RT 11/07/24 Transmitted Cannula 18:45 Lactulose Oral PHA 11/08/24 Logged 10:00 Date of Service: November 07, 2024 Billing Provider: KAYLEY HUGGINS MD Common Visit Codes: [id number] INP/OBS CARE (MOD) CLAUDIA LUIS November 07, 2024 18:49
[2024-11-07 19:32] VITALS: PULSE 87; RESP 15; O2SAT 94
[2024-11-07] MEDS: FLEET ENEMA(ADULT) 135 ML PR ONE (19:33)
[2024-11-07] MEDS ORDERED: GLIP10TA9 PO (21:34)
[2024-11-07] MEDS ORDERED: METF-370 PO (21:34)
[2024-11-07] MEDS ORDERED: ZOLP10TA6 PO (21:34)
[2024-11-07 21:35] VITALS: BP 146/75; PULSE 78; RESP 16; TEMP 97.9; O2SAT 92
[2024-11-08] VITALS (7 sets, daily range): BP systolic 120–145; BP diastolic 58–69; PULSE 63–99; RESP 16–20; TEMP 97.8–98.5; O2SAT 91–98
[2024-11-08] MEDS: ZOLPIDEM TARTRATE 5 MG TAB PO PRN (00:52)
[2024-11-08] MEDS: ENOXAPARIN SOD 40 MG/0.4 ML SYRINGE SC SCH (08:37)
[2024-11-08] MEDS: LACTULOSE 20Gm/30ML SOLN PO SCH (10:00)
--- NOTE | 2024-11-08 11:36 | DVHHP2 ---
Review of Systems Allergies: Coded Allergies: NO KNOWN ALLERGIES (Unverified , 03/29/19) Medications Current Medications Medications Dose Ordered Sig/Roger Route Start Time Stop Time Status Last Admin Dose Admin Acetaminophen/ Hydrocodone Bitart 1 tab Q4HP PRN PO 11/07/24 18:45 Enoxaparin Sodium 40 mg DAILY SC 11/08/24 10:00 11/08/24 08:37 40 MG Morphine Sulfate 2 mg Q4HPRN PRN IV 11/07/24 18:45 Nitroglycerin 0.4 mg Q5MINP PRN SL 11/07/24 18:45 Morphine Sulfate 2 mg Q30M PRN IV 11/07/24 18:45 Lactulose 30 ml DAILY PO 11/08/24 10:00 Zolpidem Tartrate 10 mg HSPRN PRN PO 11/07/24 23:00 11/08/24 00:52 10 MG Exam Vital Signs Vital Signs Date Time Temp Pulse Resp B/P (MAP) Pulse Ox O2 Delivery O2 Flow Rate FiO2 11/08/24 09:00 98.1 79 20 128/58 (81) 94 98.1 11/07/24 21:34 Room Air* 0 21 Labs/Xrays Labs Test 11/08/24 11:04 11/07/24 16:52 11/07/24 16:40 Range/Units POC Glucose 198 H 70-106 mg/dl White Blood Count 8.3 4.4-10.8 10^3/uL Red Blood Count 4.41 4.0-5.20 10^6/uL Hemoglobin 13.4 12.2-16.2 g/dL Hematocrit 40.0 36.0-46.0 % Mean Corpuscular Volume 90.8 80.0-100.0 fL Mean Corpuscular Hemoglobin 30.5 28.0-32.0 pg Mean Corpuscular Hemoglobin Concent 33.6 32.0-36.0 g/dL Red Cell Distribution Width 13.2 11.8-14.3 % Platelet Count 254 140-450 10^3/uL Mean Platelet Volume 7.6 6.9-10.8 fL Neutrophils (%) (Auto) 64.1 37.0-80.0 % Lymphocytes (%) (Auto) 29.3 10.0-50.0 % Monocytes (%) (Auto) 5.2 0.0-12.0 % Eosinophils (%) (Auto) 0.8 0.0-7.0 % Basophils (%) (Auto) 0.6 0.0-2.0 % Neutrophils # (Auto) 5.3 1.6-8.6 10 ^3/uL Lymphocytes # (Auto) 2.4 0.4-5.4 10 ^3/uL Monocytes # (Auto) 0.4 0-1.3 10 ^3/uL Eosinophils # (Auto) 0.1 0-0.8 10 ^3/uL Basophils # (Auto) 0 0-0.2 10 ^3/uL Nucleated Red Blood Cells 0.1 % Sodium Level 143 136-145 mmol/L Potassium Level 3.6 3.5-5.1 mmol/L Chloride Level 106 98-107 mmol/L Carbon Dioxide Level 27 20-31 mmol/L Anion Gap 10 5-15 Blood Urea Nitrogen 14 9-23 mg/dL Creatinine 0.61 0.550-1.02 mg/dL Glomerular Filtration Rate Calc 94 >90 mL/min BUN/Creatinine Ratio 23.0 H 10.0-20.0 Serum Glucose 132 H 74-106 mg/dL Calcium Level 9.6 8.7-10.4 mg/dL Troponin I High Sensitivity < 3 L </=34 ng/L Lipase 38 12-53 U/L Urine Color Yellow Yellow Urine Clarity Clear Clear Urine pH 5.5 5.0-9.0 Urine Specific [place] 1.028 1.001-1.035 Urine Protein Negative Negative Urine Ketones Trace Negative Urine Blood 1+ H Negative /uL Urine Nitrite Negative Negative Urine Bilirubin Negative Negative Urine Urobilinogen Normal Negative mg/dL Urine Leukocyte Esterase Negative Negative /uL Urine RBC 2 0 - 4 /hpf Urine Microscopic WBC 1 0-5 /HPF Urine Squamous Epithelial Cells Few <5 /hpf Urine Bacteria None seen None Seen /hpf Urine Mucus Few None Seen Urine Glucose 2+ H Normal mg/dL Assessment/Plan Assessment/Plan 1. acute abdominal pain likely related to constipation GI consult, fleet enema, supportive care 2. type 2 diabetes insulin ss My Orders Orders - CLAUDIA LUIS PROFESSIONAL BASS FISHER Procedure Category Date Status Time Admit ADMIT 11/07/24 Transmitted 18:45 Allergies MELLY 11/07/24 In Process 18:45 Code Status CODE 11/07/24 Transmitted 18:45 Full Liq Diet DIET 11/08/24 Transmitted Breakfast Hydrocodone-Acet PHA 11/07/24 In Process 5/325mg Tab ([place] 18:45 Enoxaparin Sodium PHA 11/08/24 In Process (Lovenox) 10:00 Condition: Fair MELLY 11/07/24 In Process 18:45 Morphine Sulfate PHA 11/07/24 In Process Injection 18:45 Nitroglycerin PHA 11/07/24 In Process Sublingual (Ntrostat 18:45 Morphine Sulfate PHA 11/07/24 In Process Injection 18:45 Stat Ekg For Chest MELLY 11/07/24 In Process Pain 18:45 Notify Of Changes MELLY 11/07/24 In Process From Base 18:45 Information Systems Architect For MELLY 11/07/24 In Process 24 Hours 18:45 Emergency Dysrhythmia MELLY 11/07/24 In Process Protocol 18:45 Rhythm Strips Once MELLY 11/07/24 In Process Every Shift 18:45 Oxygen By Nasal RT 11/07/24 Transmitted Cann[place] 18:45 Lactulose Oral PHA 11/08/24 In Process 10:00 *Consult Dr[address] Ruiz CONS 11/07/24 Transmitted [place] 20:52 CLAUDIA LUIS PROFESSIONAL BASS FISHER November 08, 2024 11:36
[2024-11-08] MEDS ORDERED: LACT10SO60 PO (11:37)
--- NOTE | 2024-11-08 12:06 | DVHINCON2 ---
Date of service: November 08, 2024 Referring Physician Emeka Silverio Reason for Consultation Abdominal pain History of Present Illness 74-year-old female came to the ER complaining of abdominal pain abdominal pain started three days ago associated with nausea. Abdominal pain is 9/10 with radiation from epigastric region to the suprapubic region. No radiation to the back. States that she does have history of diabetes for which she takes metformin insulin. She did have a gallbladder surgery many years ago. Denies any other symptoms. Patient was found to be constipated and was given laxatives yesterday She has had multiple bowel movements and now she is feeling better. Patient is complaining of some headache and dizziness which she attributes to her pain medication Patient was seen in an ER in August of 2024 for suspected diverticulitis in the ER. She had left lower quadrant pain. CT scan had shown diverticular disea se but without evidence of diverticulitis. Patient's last colonoscopy was several years ago Past Medical History PAST MEDICAL HISTORY: DM, HTN Past Surgical History Surgical History: Cholecystectomy Family History: Diabetes mellitus G8 MOTHER Allergies: Coded Allergies: NO KNOWN ALLERGIES (Unverified , 03/29/19) Home Meds Active Scripts Lactulose (Constulose) 10 Gm/15 Ml Christie, 10 GM PO BID, #120 ML Prov:EMEKA LUIS INSTALLATIONS INSPECTOR 11/08/24 Amoxicillin & Pot Clavulanate (AUGMENTIN TABLET) 875 Mg Tb, 875 MG PO BID for 7 Days, #14 TAB Prov:DIPESH JEAN INSTALLATIONS INSPECTOR 08/02/24 Ibuprofen (Ibuprofen) 600 Mg Tab, 1 TAB PO TID for 7 Days, #21 TAB 0 Refills Prov:AMINA HERNANDEZ NP 03/08/24 Prednisone (Prednisone) 20 Mg Tab, 40 MG PO DAILY for 5 Days, #10 TAB 0 Refills Prov:AMINA HERNANDEZ NP 03/08/24 Lidocaine HCl (Mouth-Throat) (Lidocaine HCl Viscous) 2 % Christie, 15 ML MT TID for 2 Days, #200 ML 0 Refills Prov:AMINA HERNANDEZ NP 03/08/24 Amoxicillin & Pot Clavulanate (AUGMENTIN TABLET) 875 Mg Tb, 875 MG PO BID for 5 Days, #10 TAB 0 Refills Prov:AMINA HERNANDEZ NP 03/08/24 Benzonatate (Benzonatate) 100 Mg Cap, 1 CAP PO TID for 10 Days, #30 CAP 0 Refills Prov:AMINA HERNANDEZ JEWEL STAKER 01/14/24 Acetaminophen (Acetaminophen) 500 Mg Tab, 500 MG PO QIDP for 10 Days, #40 TAB 0 Refills Prov:AMINA HERNANDEZ JEWEL STAKER 01/14/24 Amoxicillin & Pot Clavulanate (AUGMENTIN TABLET) 875 Mg Tb, 875 MG PO BID for 5 Days, #10 TAB 0 Refills Prov:AMINA HERNANDEZ JEWEL STAKER 01/14/24 Azithromycin (Zithromax) 1 Gm Pow, 1 PACK PO ONCE, #1 PACK Prov:PAUL GUERRERO MD 09/29/23 Methylprednisolone (Medrol Dosepak) 4 Mg Ramy, 4 MG PO UD, #21 TAB UAD Prov:PAUL GUERRERO MD 09/29/23 Calcium Carbonate-Simethicone (Maalox Advanced Maximum S) 1 Chw Chw, 1 CHW PO BID, #20 TAB.CHEW Prov:DANYELLE BRISENO PAC 09/15/22 Ondansetron (Zofran) 4 Mg Tab, 1 TAB PO Q6HR, #20 TAB Prov:DANYELLE BRISENO PAC 09/15/22 Reported Medications Metformin Hydrochloride (Metformin Hcl) 500 Mg Tab, 1000 MG PO BID for 30 Days, MG 11/07/24 Zolpidem Tartrate (Zolpidem Tartrate) 10 Mg Tab, 1 TAB PO QHSP PRN for FOR INSOMNIA 11/07/24 Glipizide (Glipizide) 10 Mg Tab, 1 TAB PO BID 11/07/24 Current Medications Current Medications Medications (Trade) Dose Ordered Sig/Roger Route PRN Reason Start Time Stop Time Status Last Admin Acetaminophen/ Hydrocodone Bitart ([place] 5/325MG Tab) 1 tab Q4HP PRN PO MODERATE PAIN (4-6 PAIN SCALE) 11/07/24 18:45 11/08/24 11:39 DC Enoxaparin Sodium (Lovenox) 40 mg DAILY SC 11/08/24 10:00 11/08/24 08:37 Morphine Sulfate 2 mg Q4HPRN PRN IV SEVERE PAIN (7-10 PAIN SCALE) 11/07/24 18:45 11/08/24 11:39 DC Nitroglycerin (Ntrostat Sublingual) 0.4 mg Q5MINP PRN SL FOR CHEST PAIN 11/07/24 18:45 Morphine Sulfate 2 mg Q30M PRN IV FOR CHEST PAIN 11/07/24 18:45 11/08/24 11:39 DC Lactulose 30 ml DAILY PO 11/08/24 10:00 Zolpidem Tartrate (Ambien) 10 mg HSPRN PRN PO FOR INSOMNIA 11/07/24 23:00 11/08/24 00:52 Vital Signs Vital Signs Date Time Temp Pulse Resp B/P (MAP) Pulse Ox O2 Delivery O2 Flow Rate FiO2 11/08/24 09:00 98.1 79 20 128/58 (81) 94 98.1 11/07/24 21:34 Room Air* 0 21 Physical Exam General Appearance: Alert, Oriented X3, Cooperative, No acute distress Respiratory: Clear to auscultation, Normal air movement Cardiovascular: Regular rate, Normal S1, Normal S2, No murmurs Abdominal: Normal bowel sounds, Soft, No tenderness Extremities: No clubbing, No cyanosis Labs/Diagnostic Data Labs Test 11/08/24 11:04 11/07/24 16:52 11/07/24 16:40 Range/Units POC Glucose 198 H 70-106 mg/dl White Blood Count 8.3 4.4-10.8 10^3/uL Red Blood Count 4.41 4.0-5.20 10^6/uL Hemoglobin 13.4 12.2-16.2 g/dL Hematocrit 40.0 36.0-46.0 % Mean Corpuscular Volume 90.8 80.0-100.0 fL Mean Corpuscular Hemoglobin 30.5 28.0-32.0 pg Mean Corpuscular Hemoglobin Concent 33.6 32.0-36.0 g/dL Red Cell Distribution Width 13.2 11.8-14.3 % Platelet Count 254 140-450 10^3/uL Mean Platelet Volume 7.6 6.9-10.8 fL Neutrophils (%) (Auto) 64.1 37.0-80.0 % Lymphocytes (%) (Auto) 29.3 10.0-50.0 % Monocytes (%) (Auto) 5.2 0.0-12.0 % Eosinophils (%) (Auto) 0.8 0.0-7.0 % Basophils (%) (Auto) 0.6 0.0-2.0 % Neutrophils # (Auto) 5.3 1.6-8.6 10 ^3/uL Lymphocytes # (Auto) 2.4 0.4-5.4 10 ^3/uL Monocytes # (Auto) 0.4 0-1.3 10 ^3/uL Eosinophils # (Auto) 0.1 0-0.8 10 ^3/uL Basophils # (Auto) 0 0-0.2 10 ^3/uL Nucleated Red Blood Cells 0.1 % Sodium Level 143 136-145 mmol/L Potassium Level 3.6 3.5-5.1 mmol/L Chloride Level 106 98-107 mmol/L Carbon Dioxide Level 27 20-31 mmol/L Anion Gap 10 5-15 Blood Urea Nitrogen 14 9-23 mg/dL Creatinine 0.61 0.550-1.02 mg/dL Glomerular Filtration Rate Calc 94 >90 mL/min BUN/Creatinine Ratio 23.0 H 10.0-20.0 Serum Glucose 132 H 74-106 mg/dL Calcium Level 9.6 8.7-10.4 mg/dL Troponin I High Sensitivity < 3 L </=34 ng/L Lipase 38 12-53 U/L Urine Color Yellow Yellow Urine Clarity Clear Clear Urine pH 5.5 5.0-9.0 Urine Specific [place] 1.028 1.001-1.035 Urine Protein Negative Negative Urine Ketones Trace Negative Urine Blood 1+ H Negative /uL Urine Nitrite Negative Negative Urine Bilirubin Negative Negative Urine Urobilinogen Normal Negative mg/dL Urine Leukocyte Esterase Negative Negative /uL Urine RBC 2 0 - 4 /hpf Urine Microscopic WBC 1 0-5 /HPF Urine Squamous Epithelial Cells Few <5 /hpf Urine Bacteria None seen None Seen /hpf Urine Mucus Few None Seen Urine Glucose 2+ H Normal mg/dL CT SCAN ABD PELVIS IMPRESSION: 1. No findings of bowel obstruction. Large stool burden in the right and transverse colons. 2. No pneumoperitoneum or ascites. 3. Gallbladder has been surgically removed. 4. No nephrolithiasis or hydronephrosis. Problems(with codes): (1) Constipation (2) Diverticulosis (3) Uncontrolled diabetes mellitus (4) Acute abdominal pain Plan/Recommendation Assessment plan Patient's abdominal pain is improving after she has had multiple bowel movements We are going to advance her soft mechanical diet Maintain her on stool softeners Outpatient follow up with GI Services in near future to arrange outpatient elective colonoscopy Once again thank you for allowing me to participate in the care of this patient Plan discussed with: Patient, Other (Nurse) CHIRAG KUMAR MD November 08, 2024 12:06
--- NOTE | 2024-11-08 15:02 | DVHDS2 ---
Discharge Summary Date of Admission November 07, 2024 at 18:45 Date of Discharge: November 08, 2024 Labs/Diagnostic Data: Laboratory Results Test 11/08/24 11:04 11/07/24 16:52 11/07/24 16:40 POC Glucose 198 mg/dl (70-106) White Blood Count 8.3 10^3/uL (4.4-10.8) Red Blood Count 4.41 10^6/uL (4.0-5.20) Hemoglobin 13.4 g/dL (12.2-16.2) Hematocrit 40.0 % (36.0-46.0) Mean Corpuscular Volume 90.8 fL (80.0-100.0) Mean Corpuscular Hemoglobin 30.5 pg (28.0-32.0) Mean Corpuscular Hemoglobin Concent 33.6 g/dL (32.0-36.0) Red Cell Distribution Width 13.2 % (11.8-14.3) Platelet Count 254 10^3/uL (140-450) Mean Platelet Volume 7.6 fL (6.9-10.8) Neutrophils (%) (Auto) 64.1 % (37.0-80.0) Lymphocytes (%) (Auto) 29.3 % (10.0-50.0) Monocytes (%) (Auto) 5.2 % (0.0-12.0) Eosinophils (%) (Auto) 0.8 % (0.0-7.0) Basophils (%) (Auto) 0.6 % (0.0-2.0) Neutrophils # (Auto) 5.3 10 ^3/uL (1.6-8.6) Lymphocytes # (Auto) 2.4 10 ^3/uL (0.4-5.4) Monocytes # (Auto) 0.4 10 ^3/uL (0-1.3) Eosinophils # (Auto) 0.1 10 ^3/uL (0-0.8) Basophils # (Auto) 0 10 ^3/uL (0-0.2) Nucleated Red Blood Cells 0.1 % Sodium Level 143 mmol/L (136-145) Potassium Level 3.6 mmol/L (3.5-5.1) Chloride Level 106 mmol/L (98-107) Carbon Dioxide Level 27 mmol/L (20-31) Anion Gap 10 (5-15) Blood Urea Nitrogen 14 mg/dL (9-23) Creatinine 0.61 mg/dL (0.550-1.02) Glomerular Filtration Rate Calc 94 mL/min (>90) BUN/Creatinine Ratio 23.0 (10.0-20.0) Serum Glucose 132 mg/dL (74-106) Calcium Level 9.6 mg/dL (8.7-10.4) Troponin I High Sensitivity < 3 ng/L (</=34) Lipase 38 U/L (12-53) Urine Color Yellow (Yellow) Urine Clarity Clear (Clear) Urine pH 5.5 (5.0-9.0) Urine Specific [place] 1.028 (1.001-1.035) Urine Protein Negative (Negative) Urine Ketones Trace (Negative) Urine Blood 1+ /uL (Negative) Urine Nitrite Negative (Negative) Urine Bilirubin Negative (Negative) Urine Urobilinogen Normal mg/dL (Negative) Urine Leukocyte Esterase Negative /uL (Negative) Urine RBC 2 /hpf (0 - 4) Urine Microscopic WBC 1 /HPF (0-5) Urine Squamous Epithelial Cells Few /hpf (<5) Urine Bacteria None seen /hpf (None Seen) Urine Mucus Few (None Seen) Urine Glucose 2+ mg/dL (Normal) Other Laboratory Tests 11/07/24 16:52 Brief Hx & Hospital Course: 74-year-old female came to the ER complaining of abdominal pain abdominal pain started three days ago associated with nausea. Abdominal pain is 9/10 with radiation from epigastric region to the suprapubic region. No radiation to the back. States that she does have history of diabetes for which she takes metformin insulin. She did have a gallbladder surgery many years ago. Denies any other symptoms. 74-year-old female presents to emergency room for acute abdominal pain. CT scan showed constipation. Patient was given enema and lactulose and was able to have bowel movement patient reported improvement in abdominal pain. Patient was also seen by GI. Patient was advised to follow up with PCP within one week and was discharged with lactulose and patient reported pain did improve. Patient verbalized understanding Condition at Discharge: Fair Final Diagnosis/Problems List 1. acute abdominal pain likey from constipation 2. type 2 diabetes with hyperglcemia Discharge Disposition: Home Discharge Instruct/Medications Diet: Consistent carbohydrate Activity: No Restrictions, As Tolerated Follow Up/Referral: pcp within 1 week Discharge Statement: "Patient was advised to return to the ER or call 911 if any headaches, dizziness, shortness of breath, chest pain, abdominal pain, bleeding, fevers, or worsening of medical condition. Patient was counseled about treatment plan, medications, possible side effects, patientverbalized understanding. All questions were answered to the best of my ability. This discharge took greater then 30 minutes in planning, reviewing documentation, counseling the patient, and discussing with other team members." ASSESSMENT ASSESSMENT Assessment 1. acute abdominal pain likey from constipation 2. type 2 diabetes with hyperglcemia CLAUDIA LUIS November 08, 2024 15:02
== END 2024-11-08 18:00 | disposition home or self-care (01) | DRG 390 ==
LOC: ER 16:20 → OVERFLOW 18:45 → WEST WING 21:08
PROVIDERS: ADMIT Nurse Practitioner Family; ATTEND Nurse Practitioner Family
DX: K56.41 Fecal impaction (principal); E11.65 Type 2 diabetes mellitus with hyperglycemia; I10 Essential (primary) hypertension; Z79.2 Long term (current) use of antibiotics; Z79.1 Long term (current) use of non-steroidal anti-inflammatories (NSAID); Z79.899 Other long term (current) drug therapy; Z90.49 Acquired absence of other specified parts of digestive tract; Z83.3 Family history of diabetes mellitus; Z79.84 Long term (current) use of oral hypoglycemic drugs
CPT/HCPCS: 36415; 74176; 80048; 81001; 82962; 83690; 84484; 85025; 93005; 96361; 96374; 96375; G0378; J2405; J2470; J2543